=== PATIENT | female | born 1955 | race Caucasian/White ===

== ENCOUNTER → 2016-11-04 | Outpatient (CLI) | payer OTHER ==
[~2016-11-04] MED LIST: ATACAND HCT1 TABLET PO; ATARAX,VISTARIL25 MG PO; CENTRUM SILVER1 EAC3 PO; CORTIZONE-1028 GM TP; FISH OIL500 MG PO; HYZAAR 100-11 TABLET PO; METHADONE5 MG PO; PREDNISONE20 MG PO; PRILOSEC40 MG PO; PRISTIQ50 MG PO; PROAIR HFA8.5 GM IH; SUMATRIPTAN SUC50 MG PO; TOPROL XL50 MG PO; UNITHROID75 MCG PO
== END | disposition home or self-care (01) ==
LOC: NUC 09-23 08:30
DX: R10.11 Right upper quadrant pain (principal)
CPT/HCPCS: 78264; A9541

== ENCOUNTER 2017-03-19 12:48 | Observation (INO) | payer OTHER ==
[~2017-03-19] VITALS: Ht 157.5 cm; Wt 61.5 kg
[~2017-03-19 12:48] MED LIST changes: +FISH OIL + D31 EACH PO; -FISH OIL500 MG PO
[2017-03-19 13:44] LABS: BASOPHIL (%) 0.5 % (0-1); EOSINOPHIL (%) 1.5 % (0-5); EOSINOPHIL COUNT 0.1 K/uL (0-0.3); HEMATOCRIT 43.9 % (36.0-46.0); HEMOGLOBIN 14.5 G/DL (11.9-15.5); IMMATURE GRANULOCYTE (%) 0.2 % (0.0-0.7); LYMPHOCYTE (%) 29.5 % (15-42); LYMPHOCYTE COUNT 1.8 K/uL (1.0-2.8); MCV 90.7 FL (83-99); MONOCYTE (%) 6.8 % (3-12); MONOCYTE COUNT 0.4 K/uL (0-0.8); NEUTROPHIL (%) 61.5 % (45-76); NEUTROPHIL COUNT 3.8 K/uL (1.8-6.4); PLATELET COUNT 301 K/uL (156-360); RBC DIS.WIDTH-CV 12.6 % (11.8-14.6); RBC DIS.WIDTH-SD 41.6 % (39-53); RED BLOOD COUNT 4.84 M/uL (3.80-5.20); WHITE BLOOD COUNT 6.2 K/uL (4.1-10.2)
[2017-03-19 13:52] LABS: ALBUMIN 4.6 g/dL (3.2-4.8); CHLORIDE 103 mEq/L (99-109)
[2017-03-19 13:53] LABS: POTASSIUM 4.3 mEq/L (3.7-5.4); SODIUM 139 mEq/L (136-147)
[2017-03-19 13:55] LABS: GLUCOSE 80 mg/dL (70-99); TOTAL PROTEIN 7.6 g/dL (6.4-8.3)
[2017-03-19 13:57] LABS: TOTAL BILIRUBIN 0.6 mg/dL (0.0-1.0)
[2017-03-19 13:58] LABS: ALKALINE PHOSPHATASE 86 IU/L (3-129); CREATININE 0.8 mg/dL (0.6-1.3); GFR ESTIMATE (CALCULATED) > 59 mL/min/
[2017-03-19 14:00] LABS: AST (GOT) 22 IU/L (2-34); UREA NITROGEN (BUN) 18 mg/dL (9-23)
[2017-03-19 14:01] LABS: ALT (GPT) 22 IU/L (3-49)
[2017-03-19 14:04] LABS: TROP-I INTERPRETATION NEGATIVE; TROPONIN-I < 0.01 ng/mL (0.0-0.30)
[2017-03-19] MEDS ORDERED: CELEBREX200 MG PO (16:44)
[2017-03-19] MEDS ORDERED: BRINTELLIX10 MG PO (16:46)
[2017-03-19 18:10] LABS: APPEARANCE CLEAR ((CLEAR)); BILIRUBIN NEGATIVE; BLOOD SMALL; COLOR STRAW ((YELLOW)); GLUCOSE (STRIP) NEGATIVE; KETONES NEGATIVE; LEUKOCYTES SMALL; NITRITE NEGATIVE; PROTEIN (STRIP) NEGATIVE; SPECIFIC GRAVITY 1.029 (1.000-1.030); UROBILINOGEN 0.2 MG/DL (0.2-1.0)
[2017-03-19 18:15] LABS: BACTERIA NONE SEEN /HPF; EPITHELIAL CELLS RARE /HPF; MUCUS NONE SEEN /LPF; RED BLOOD CELLS 0-5 /HPF (0-5); UCUL ADDED? NO; WHITE BLOOD CELLS 0-5 /HPF (0-5)
[2017-03-19 18:25] LABS: TROP-I INTERPRETATION NEGATIVE; TROPONIN-I < 0.01 ng/mL (0.0-0.30)
[2017-03-19 20:03] VITALS: BP 162/96
[2017-03-20 01:00] VITALS: BP 176/92
[2017-03-20 04:52] LABS: APPEARANCE TURBID ((CLEAR)); BILIRUBIN NEGATIVE; BLOOD NEGATIVE; COLOR YELLOW ((YELLOW)); GLUCOSE (STRIP) NEGATIVE; KETONES 20; LEUKOCYTES NEGATIVE; NITRITE NEGATIVE; PROTEIN (STRIP) NEGATIVE; SPECIFIC GRAVITY 1.019 (1.000-1.030); UROBILINOGEN 0.2 MG/DL (0.2-1.0)
[2017-03-20 05:00] VITALS: BP 170/80
[2017-03-20 05:44] LABS: BACTERIA 2+ /HPF; EPITHELIAL CELLS RARE /HPF; MUCUS TRACE /LPF; RED BLOOD CELLS 0-5 /HPF (0-5); UCUL ADDED? YES; WHITE BLOOD CELLS NONE SEEN /HPF (0-5)
[2017-03-20 06:38] LABS: HEMATOCRIT 41.8 % (36.0-46.0); HEMOGLOBIN 13.7 G/DL (11.9-15.5); MCH 29.5 PG (29.0-34.0); MCHC 32.8 G/DL (30.0-36.0); MCV 90.1 FL (83-99); PLATELET COUNT 296 K/uL (156-360); RBC DIS.WIDTH-CV 12.5 % (11.8-14.6); RED BLOOD COUNT 4.64 M/uL (3.80-5.20); WHITE BLOOD COUNT 7.3 K/uL (4.1-10.2)
[2017-03-20 07:06] LABS: CHLORIDE 97 MEQ/L (99-109); CREATININE 0.8 MG/DL (0.6-1.3); GFR ESTIMATE (CALCULATED) > 59 mL/min/; POTASSIUM 4.2 MEQ/L (3.7-5.4); SODIUM 136 MEQ/L (136-147); UREA NITROGEN (BUN) 13 mg/dL (9-23)
[2017-03-20 07:20] LABS: GLUCOSE 112 mg/dL (70-99)
[2017-03-20 07:24] LABS: TROP-I INTERPRETATION NEGATIVE; TROPONIN-I < 0.01 ng/mL (0.0-0.30)
[2017-03-20 08:13] VITALS: BP 132/76
[2017-03-20] MEDS ORDERED: LOSARTAN-HCTZ1 EAC2 PO (11:47)
[2017-03-20] MEDS ORDERED: LABETALOL HCL100 MG PO (11:47)
== END 2017-03-20 15:09 | disposition home or self-care (01) ==
LOC: EME 12:48 → EDOF 15:42 → ENRESERV 15:43 → 5WEST 19:46
PROVIDERS: Emergency Medicine; Internal Medicine
DX: R07.9 Chest pain, unspecified (principal); I16.0 Hypertensive urgency; I10 Essential (primary) hypertension; E03.9 Hypothyroidism, unspecified; R53.1 Weakness; R20.0 Anesthesia of skin; R47.1 Dysarthria and anarthria; Z82.49 Family history of ischemic heart disease and other diseases of the circulatory system; G50.0 Trigeminal neuralgia; Z90.2 Acquired absence of lung [part of]; R42 Dizziness and giddiness; R06.02 Shortness of breath; R11.0 Nausea; Z79.52 Long term (current) use of systemic steroids; Z84.1 Family history of disorders of kidney and ureter; Z88.8 Allergy status to other drugs, medicaments and biological substances
CPT/HCPCS: 70450; 70551; 71275; 72141; 80048; 80053; 81003; 84484; 85025; 85027; 87086; 93005; 99281; 99285; G0378; J0360; J1650; J1885; J2405; J7040